=== PATIENT | female | born 1940 | race Caucasian/White ===

== ENCOUNTER 2016-04-28 16:04 | Inpatient (IN) | payer OTHER ==
[2016-04-28] MEDS ORDERED: NS 1,000 ML IV ONE (16:31)
--- NOTE | 2016-04-28 16:31 | EDPHY ---
H & P Stated Complaint: Deterioation of condistion over last 3-4 days;weak,lethargic HPI/ROS: HPI CHIEF COMPLAINT: Generalized weakness, dehydration, shortness of breath, increasing confusion HISTORY OF PRESENT ILLNESS: This patient very pleasant 75-year-old female significant past medical history for COPD, acute on chronic hypercarbic respiratory failure, AFib, pulmonary hypertension, presents to the emergency room with daughter and for increasing confusion, generalized weakness x1 week, dehydration, decreased appetite and worsening shortness of breath. Patient tells me she feels like a wet noodle she tells me she is weak all over. She feels more short of breath than normal. She has had a cough but nonproductive. She states she has had a decreased appetite not drinking. She denies significant pain anywhere she does have chronic back pain. Past Medical History: COPD, on 4-6 L nasal cannula, AFib, acute on chronic hypercapnic respiratory failure, pulmonary hypertension Social History: denies use of drugs alcohol tobacco products Family History: noncontributory ROS REVIEW OF SYSTEMS: A comprehensive 10 point review of systems is otherwise negative aside from elements mentioned in the history of present illness. Exam Constitutional appears nontoxic triage nursing summary reviewed, vital signs reviewed, awake/alert. Eyes normal conjunctivae and sclera, EOMI, PERRLA. HENT normal inspection, atraumatic, dry mucous membranes, no epistaxis, neck supple/ no meningismus, no raccoon eyes. Respiratory decreased breath sounds bilaterally, faint wheezing, no respiratory distress, no wheezing. Cardiovascular irregular, irregular rhythm , no murmur, no edema, distal pulses normal. Gastrointestinal soft, non-tender, no rebound, no guarding, normal bowel sounds, no distension, no pulsatile mass. Genitourinary no CVA tenderness. Musculoskeletal no midline vertebral tenderness, full range of motion, no calf swelling, no tenderness of extremities, no meningismus, good pulses, neurovascularly intact. Skin pink, warm, & dry, no rash, skin atraumatic. Neurologic awake, alert and oriented x 3, AAOx3, moves all 4 extremities equally, motor intact, sensory intact, CN II-XII intact, normal cerebellar, normal vision, normal speech. Psychiatric normal mood/affect. Heme/Lymph/Immune no lymphadenopathy. Differential Diagnosis: includes but is not limited to in a particular order dehydration, electrolyte abnormality, COPD exacerbation, pneumonia, sepsis, infection, failure to thrive, generalized weakness, urinary tract infection Medical Decision Making: This patient be placed on full instructional coordinator showed have an IV established will receive IV fluids as she is dehydrated clinically, will check blood work including electrolytes, troponin, she will need a chest x- ray to rule out pneumonia, EKG, and most likely this patient will need to be admitted for generalized weakness, failure to thrive, shortness of breath. Re-evaluation: EKG interpretation by me on record in [employer] system. Impression time of EKG 1641, this is AFib rate of 92 T-wave abnormality in aVL as well as V1 V2, V3 and V4. Otherwise unremarkable EKG. 180: re-examination at this time this patient is resting comfortably have ordered her IV Lasix, I have held her IV fluids as her chest x-ray does show pulmonary edema. She has obvious superimposed COPD. She is at her baseline oxygen requirement 4 L. She is in no acute distress. She will be admitted to the hospitalist service for pulmonary edema, shortness of breath, generalized weakness. Her urinalysis pending at this time it is noted her troponin is negative her EKG is AFib. Patient agrees for admission. I spoke with Dr. Carvalho he agrees to admit this patient to PCU. Source: Patient - Personal History Current Tetanus Diphtheria and Acellular Pertussis (TDAP): Unsure Tetanus Vaccine Date: UNSURE - Medical/Surgical History Hx Asthma: No Hx Chronic Respiratory Disease: Yes Hx Diabetes: No Hx Cardiac Disease: Yes Hx Renal Disease: No Hx Cirrhosis: No Hx Alcoholism: No Hx HIV/AIDS: No Hx Splenectomy or Spleen Trauma: No Other PMH: pmh- end stage emphysema, mvp, chf, etoh (sober 30 years). psh- hysterectomy - Social History Smoking Status: Former smoker Constitutional: Initial Vital Signs Temperature (C) 36.7 C 04/28/16 16:15 Heart Rate 81 04/28/16 16:15 Respiratory Rate 20 04/28/16 16:15 O2 Sat (%) 99 04/28/16 16:15 O2 Delivery Mode Nasal Cannula O2 (L/minute) 4 Allergies/Adverse Reactions: Penicillins Allergy (Unknown, Verified 04/28/16 16:26) erythromycin base Allergy (Verified 04/28/16 16:26) Macrolide Antibiotics Allergy (Verified 04/28/16 16:26) Sulfa (Sulfonamide Antibiotics) Allergy (Verified 04/28/16 16:26) Home Medications: Medication Instructions Recorded Atenolol [Tenormin 50 mg (RX)] 25 mg PO DAILY 03/24/12 Estrogens, Conjugated [Premarin] 0.45 mg PO DAILY 03/24/12 Tiotropium Inhaler [Spiriva 1 inh IH DAILY 03/24/12 Inhaler (RX)] methylPREDNISolone [Medrol 4mg 8 mg PO DAILY 10/21/12 (RX)] AZITHROMYCIN [Z-PACK] 250 mg PO DAILY #4 packet 11/27/15 Albuterol Sulfate [Proair Hfa] 1 - 2 puffs IN Q4H PRN 04/28/16 Fluticasone Propionate [Flovent 1 inh PO BID 04/28/16 Hfa] LORAZEPAM [LORAZEPAM] 0.5 mg PO TID PRN 04/28/16 Levalbuterol 0.63 mg [Xopenex 0.63 mg IH DAILY 04/28/16 0.63MG Neb (*)] Methylprednisolone [Medrol] 4 mg PO HS 04/28/16 Medical Decision Making - Data Points Laboratory Results: Laboratory Results 04/28/16 16:51 04/28/16 16:51 Medications Given: Discontinued Medications Albuterol/Ipratropium (Duoneb) 3 ml IH EDNOW ONE Stop: 04/28/16 16:39 Last Admin: 04/28/16 16:58 Dose: 3 ml Furosemide (Lasix Injection) 40 mg IVP EDNOW ONE Stop: 04/28/16 18:02 Last Admin: 04/28/16 18:13 Dose: 40 mg Sodium Chloride (Ns) 1,000 mls @ 0 mls/hr IV ONCE ONE PRN Reason: As Directed Stop: 04/28/16 16:32 Last Admin: 04/28/16 17:00 Dose: 400 mls Levalbuterol (Xopenex 0.63mg Neb) 0.63 mg IH DAILY DENNY Stop: 10/26/16 09:59 Last Admin: 04/29/16 09:51 Dose: Not Given Lorazepam (Ativan Injection) 0.5 mg IVP EDNOW ONE Stop: 04/28/16 20:01 Last Admin: 04/28/16 20:05 Dose: 0.5 mg Lorazepam (Ativan) 0.5 mg PO TID PRN PRN Reason: Anxiety Stop: 10/25/16 22:04 Last Admin: 04/29/16 13:12 Dose: 0.5 mg Departure - Departure Disposition: [facility] Acute Clinical Impression: Generalized weakness, Shortness of breath Pulmonary edema Qualifiers: Chronicity: acute Qualifier Code: (J81.0) Acute pulmonary edema Condition: Fair
[2016-04-28] MEDS ORDERED: IPRATROPIUM/ALBUTEROL 3 ML DEYVIAL IH ONE (16:38)
--- NOTE | 2016-04-28 16:45 | CPEKG ---
Heart Rate: 92 RR Interval: 652 QRSD Interval: 92 QT Interval: 332 QTC Interval: 411 QRS [place]: -57 T Wave [place]: 125 EKG Severity - ABNORMAL ECG - EKG Impression: ATRIAL FIBRILLATION, V-RATE 84-117 EKG Impression: LEFT ANTERIOR FASCICULAR BLOCK EKG Impression: NONSPECIFIC T ABNORMALITIES, ANT-LAT LEADS Electronically Signed By: Pablo Floyd 30-Apr-2016 05:38:57
[2016-04-28 17:12] LABS: % IMMATURE GRANULYOCYTES 0.7 % (0.0-1.1); ABSOLUTE IMMATURE GRANULOCYTES 0.06 10^3/uL (0.00-0.10); ADD DIFF? NO; ADD MORPH? NO; ADD SCAN? NO; ATYPICAL LYMPHOCYTE FLAG 0 (0-99); FRAGMENT RBC FLAG 0 (0-99); HEMATOCRIT 42.1 % (38.0-47.0); HEMOGLOBIN 12.5 g/dL (12.6-16.3); LEFT SHIFT FLG 0 (0-99); LIPEMIA HEMOLYSIS FLAG 70 (0-99); MEAN CELL HEMOGLOBIN 30.2 pg (27.9-34.1); MEAN CELL HEMOGLOBIN CONCENTR. 29.7 g/dL (32.4-36.7); MEAN CELL VOLUME 101.7 fL (81.5-99.8); MEAN PLATELET VOLUME 9.6 fL (8.7-11.7); PLATELET CLUMPS FLAG 0 (0-99); PLATELET COUNT 195 10^3/uL (150-400); RED BLOOD CELL COUNT 4.14 10^6/uL (4.18-5.33); RED CELL DISTRIBUTION WIDTH 12.9 % (11.5-15.2)
[2016-04-28 17:27] LABS: ALANINE AMINOTRANSFERASE 56 IU/L (9-52); ALBUMIN 3.6 g/dL (3.5-5.0); ALKALINE PHOSPHATASE 64 IU/L (38-126); ASPARTATE AMINOTRANSFERASE 42 IU/L (14-46); BILIRUBIN,TOTAL 0.7 mg/dL (0.1-1.4); BILIRUBIN-CONJUGATED 0.5 mg/dL (0.0-0.5); BILIRUBIN-UNCONJUGATED 0.2 mg/dL (0.0-1.1); CALCIUM 8.7 mg/dL (8.5-10.4); CHLORIDE 90 mEq/L (97-110); CREATININE 0.5 mg/dL (0.6-1.0); GLOMERULAR FILTRATION RATE > 60; GLUCOSE 143 mg/dL (70-100); MAGNESIUM 1.9 mg/dL (1.6-2.3); POTASSIUM 4.7 mEq/L (3.5-5.2); SODIUM 138 mEq/L (134-144); TOTAL PROTEIN 6.3 g/dL (6.3-8.2)
[2016-04-28 17:38] LABS: CREATINE KINASE-MB FRACTION 3.09 ng/mL (0-3.19); TROPONIN I 0.013 ng/mL (0-0.034)
[2016-04-28 17:40] LABS: APTT 23.2 SEC (23.0-38.0); INR 0.94 (0.83-1.16); PROTIME(PATIENT) 12.5 SEC (12.0-15.0)
[2016-04-28 17:41] LABS: ANION GAP 8 mEq/L (8-16)
--- NOTE | 2016-04-28 17:51 | DX ---
AP Upright Portable Chest Clinical Indications: Chest pain and dyspnea in a 75-year-old female; comparison CT chest December 17, 2015 and PA and lateral chest November 27, 2015. Findings: No focal pulmonary consolidation is identified.. There is hyperexpansion with flattening of the hemidiaphragms noted. The heart is borderline enlarged allowing for portable technique. Pulmonar y vascularity is normal. No pleural effusion is seen. Pleural surfaces and bony thorax are negative f or acute abnormality. Impression: 1. Hyperexpansion consistent with previously demonstrated emphysema with no superimposed pulmonary co nsolidation identified. 2. Borderline cardiac enlargement could reflect low-grade congestive heart failure.
[2016-04-28 17:58] LABS: CARBON DIOXIDE 46 mEq/l (22-31)
[2016-04-28 17:58] LABS: P/F RATIO 99 RATIO
[2016-04-28] MEDS ORDERED: FUROSEMIDE 40 MG/4 ML VIAL IVP ONE (18:01)
[2016-04-28] MEDS ORDERED: LORazepam 2 MG/ML INJ IVP ONE (20:00)
[2016-04-28 20:11] LABS: COLOR PALE YELLOW; LEUKOCYTE ESTERASE,URINE NEGATIVE (NEGATIVE); NITRITE,URINE NEGATIVE (NEGATIVE)
[2016-04-28] MEDS ORDERED: LEVALBUTEROL 0.63 MG/3 ML DEYVIAL IH PRN (22:08)
[2016-04-28] MEDS ORDERED: ONDANSETRON 4 MG/2 ML VIAL IVP PRN (22:10)
[2016-04-28] MEDS ORDERED: ACETAMINOPHEN 325 MG TAB PO PRN (22:10)
[2016-04-28] MEDS ORDERED: ONDANSETRON DISINTEGRATING 4 MG TAB PO PRN (22:10)
--- NOTE | 2016-04-28 22:23 | PDGENHP ---
History and Physical - Chief Complaint Acute lethargy - History of Present Illness Primary care provider: Dr. Caicedo Primary stereoptician: Dr. Cuba Primary internal medicine nurse: Dr. Munoz HPI: 75-year-old female presenting with acute lethargy characterized as feeling like a noodle with associated encephalopathy, anorexia, shortness of breath, nonproductive cough, generalized weakness. Onset of symptoms approximately 1 week ago and duration has been persistent and worsening thereafter. The patient was seen by Dr. Cuba on the day prior to presentation and was initiated on azithromycin 250 mg daily. The patient has continued to utilize her Xopenex at home and it somewhat alleviates the symptoms of shortness of breath. She also utilizes as needed Ativan and this seems to alleviate any anxiety she has surrounding her breathing. The patient's family reports that she has not had anything substantial to eat or drink in approximately 4 days. She has not otherwise had any medication adjustments. She has not been expressing any infectious symptoms. History Information - Allergies/Home Medication List Allergies/Adverse Reactions: Penicillins Allergy (Unknown, Verified 04/28/16 16:26) erythromycin base Allergy (Verified 04/28/16 16:26) Macrolide Antibiotics Allergy (Verified 04/28/16 16:26) Sulfa (Sulfonamide Antibiotics) Allergy (Verified 04/28/16 16:26) Home Medications: Atenolol [Tenormin 50 mg (RX)] 25 mg PO DAILY 03/24/12 [Last Taken 04/28/16] Estrogens, Conjugated [Premarin] 0.45 mg PO DAILY 03/24/12 [Last Taken Unknown] Tiotropium Inhaler [Spiriva Inhaler (RX)] 1 inh IH DAILY 03/24/12 [Last Taken Unknown] methylPREDNISolone [Medrol 4mg (RX)] 8 mg PO DAILY 10/21/12 [Last Taken 04/28/16 ] Albuterol Sulfate [Proair Hfa] 1 - 2 puffs IN Q4H PRN 04/28/16 [Last Taken Unknown] Fluticasone Propionate [Flovent Hfa] 1 inh PO BID 04/28/16 [Last Taken Unknown] LORAZEPAM [LORAZEPAM] 0.5 mg PO TID PRN 04/28/16 [Last Taken Unknown] Levalbuterol 0.63 mg [Xopenex 0.63MG Neb (*)] 0.63 mg IH DAILY 04/28/16 [Last Taken Unknown] Methylprednisolone [Medrol] 4 mg PO HS 04/28/16 [Last Taken Unknown] I have personally reviewed and updated: family history, medical history, social history, surgical history - Past Medical History atrial fibrillation (Permanent), CHF (Diastolic), COPD (With chronic hypoxic and hypercapnic respiratory failure), hypertension Additional medical history: Mitral valve prolapse. Pulmonary hypertension. Diverticulosis - Surgical History Reports: hysterectomy - Family History Additional family history: No recent sick family contacts - Social History Smoking Status: Former smoker Alcohol Use: None Drug Use: None Additional social history: Dependent in her ADLs Review of Systems ROS: 10pt was reviewed & negative except for what was stated in HPI & below Constitutional: Reports: weakness, other (Anorexia) Respiratory: Reports: cough, shortness of breath Physical Exam Temp Pulse Resp BP Pulse Ox 36.6 C 112 H 18 95/68 L 100 04/28/16 20:40 04/28/16 20:40 04/28/16 20:40 04/28/16 20:40 04/28/16 20:40 O2 (L/minute) 4 Constitutional: no apparent distress, not in pain, chronically ill appearing, cachectic, No uncomfortable Eyes: PERRL, anicteric sclera, EOMI Ears, Nose, Mouth, Throat: no oral mucosal ulcers, other (Tacky mucous membranes ) Cardiovascular: irregularly irregular, tachycardia, other (Distant heart sounds) , No systolic murmur, No edema Respiratory: reduced air movement (Reduced expiratory air movement throughout), No expiratory wheeze, No inspiratory crackles, No bronchial breath sounds, No respiratory distress Gastrointestinal: normoactive bowel sounds, soft, non-tender abdomen, no palpable masses Skin: other (Scattered ecchymoses, no evidence of erythematous lesions) Neurologic: other (Alert awake oriented times 0, arousable to painful stimuli, able to move once she has awakened) Psychiatric: not anxious, encephalopathic, No agitated Lab Data & Imaging Review 04/28/16 16:51 04/28/16 16:51 WBC 8.01 10^3/uL (3.80-9.50) 04/28/16 16:51 RBC 4.14 10^6/uL (4.18-5.33) L 04/28/16 16:51 Hgb 12.5 g/dL (12.6-16.3) L 04/28/16 16:51 Hct 42.1 % (38.0-47.0) 04/28/16 16:51 MCV 101.7 fL (81.5-99.8) H 04/28/16 16:51 MCH 30.2 pg (27.9-34.1) 04/28/16 16:51 MCHC 29.7 g/dL (32.4-36.7) L 04/28/16 16:51 RDW 12.9 % (11.5-15.2) 04/28/16 16:51 Plt Count 195 10^3/uL (150-400) 04/28/16 16:51 MPV 9.6 fL (8.7-11.7) 04/28/16 16:51 Neut % (Auto) 89.2 % (39.3-74.2) H 04/28/16 16:51 Lymph % (Auto) 6.2 % (15.0-45.0) L 04/28/16 16:51 [place] % (Auto) 3.6 % (4.5-13.0) L 04/28/16 16:51 Eos % (Auto) 0.1 % (0.6-7.6) L 04/28/16 16:51 Baso % (Auto) 0.2 % (0.3-1.7) L 04/28/16 16:51 Nucleat RBC Rel Count 0.0 % (0.0-0.2) 04/28/16 16:51 Absolute Neuts (auto) 7.13 10^3/uL (1.70-6.50) H 04/28/16 16:51 Absolute Lymphs (auto) 0.50 10^3/uL (1.00-3.00) L 04/28/16 16:51 Absolute Monos (auto) 0.29 10^3/uL (0.30-0.80) L 04/28/16 16:51 Absolute Eos (auto) 0.01 10^3/uL (0.03-0.40) L 04/28/16 16:51 Absolute Basos (auto) 0.02 10^3/uL (0.02-0.10) 04/28/16 16:51 Absolute Nucleated RBC 0.00 10^3/uL (0-0.01) 04/28/16 16:51 Immature Gran % 0.7 % (0.0-1.1) 04/28/16 16:51 Immature Gran # 0.06 10^3/uL (0.00-0.10) 04/28/16 16:51 PT 12.5 SEC (12.0-15.0) 04/28/16 16:51 INR 0.94 (0.83-1.16) 04/28/16 16:51 APTT 23.2 SEC (23.0-38.0) 04/28/16 16:51 Puncture Site RIGHT BRACHIAL 04/28/16 17:45 Patient Temperature 37.0 DEGREES 04/28/16 17:45 pCO2 TNP 04/28/16 17:45 pO2 TNP 04/28/16 17:45 Total CO2 TNP 04/28/16 17:45 ABG pH REJ 04/28/16 17:45 ABG PO2/FiO2 Ratio 99 RATIO 04/28/16 17:45 ABG O2 Saturation TNP 04/28/16 17:45 ABG Base Excess TNP 04/28/16 17:45 VBG Lactic Acid 0.7 mmol/L (0.7-2.1) 04/28/16 18:00 Total O2 Concentration 4.0 LITERS 04/28/16 17:45 Sodium 138 mEq/L (134-144) 04/28/16 16:51 Potassium 4.7 mEq/L (3.5-5.2) 04/28/16 16:51 Chloride 90 mEq/L (97-110) L 04/28/16 16:51 Carbon Dioxide 46 mEq/l (22-31) H* 04/28/16 16:51 Bicarbonate TNP 04/28/16 17:45 Anion Gap 8 mEq/L (8-16) 04/28/16 16:51 BUN 19 mg/dL (7-23) 04/28/16 16:51 Creatinine 0.5 mg/dL (0.6-1.0) L 04/28/16 16:51 Estimated GFR > 60 04/28/16 16:51 Glucose 143 mg/dL (70-100) H 04/28/16 16:51 Calcium 8.7 mg/dL (8.5-10.4) 04/28/16 16:51 Magnesium 1.9 mg/dL (1.6-2.3) 04/28/16 16:51 Total Bilirubin 0.7 mg/dL (0.1-1.4) 04/28/16 16:51 Conjugated Bilirubin 0.5 mg/dL (0.0-0.5) 04/28/16 16:51 Unconjugated Bilirubin 0.2 mg/dL (0.0-1.1) 04/28/16 16:51 AST 42 IU/L (14-46) 04/28/16 16:51 ALT 56 IU/L (9-52) H 04/28/16 16:51 Alkaline Phosphatase 64 IU/L (38-126) 04/28/16 16:51 Creatine Kinase 26 IU/L (0-156) 04/28/16 16:51 CK-MB (CK-2) Fraction 3.09 ng/mL (0-3.19) 04/28/16 16:51 Troponin I 0.013 ng/mL (0-0.034) 04/28/16 16:51 NT-Pro-B Natriuret Pep 2590 pg/mL (0-125) H 04/28/16 16:51 Total Protein 6.3 g/dL (6.3-8.2) 04/28/16 16:51 Albumin 3.6 g/dL (3.5-5.0) 04/28/16 16:51 Lipase 28.0 IU/L (23-300) 04/28/16 16:51 Urine Color PALE YELLOW 04/28/16 19:45 Urine Appearance CLEAR 04/28/16 19:45 Urine pH 5.0 (5.0-7.5) 04/28/16 19:45 Ur Specific [place] 1.006 (1.002-1.030) 04/28/16 19:45 Urine Protein NEGATIVE (NEGATIVE) 04/28/16 19:45 Urine Ketones NEGATIVE (NEGATIVE) 04/28/16 19:45 Urine Blood NEGATIVE (NEGATIVE) 04/28/16 19:45 Urine Nitrate NEGATIVE (NEGATIVE) 04/28/16 19:45 Urine Bilirubin NEGATIVE (NEGATIVE) 04/28/16 19:45 Urine Urobilinogen NEGATIVE EU (0.2-1.0) 04/28/16 19:45 Ur Leukocyte Esterase NEGATIVE (NEGATIVE) 04/28/16 19:45 Ur Culture Indicated? NOT INDICATED (NI) 04/28/16 19:45 Urine Glucose NEGATIVE (NEGATIVE) 04/28/16 19:45 Visualized and Interpreted Chest x-ray results: Yes Chest X-Ray results: other (Faint interstitial markings, no focal airspace disease) Visualized and Interpreted EKG results: Yes EKG Interpretation: Positive for: other (AFib with left anterior fascicular block) Assessment & Plan Assessment: 75-year-old female presents with acute lethargy, acute encephalopathy, acute COPD exacerbation Plan: 1. Acute lethargy. New problem this provider, further workup indicated. Most likely etiology is acute on chronic hypercapnic respiratory failure given her progressively rising serum bicarbonate level as well as non adherence to at bedtime CPAP over the past several nights -get ABG to evaluate pH and pCO2 -send flu PCR -get PT/OT/case management -give trial of BiPAP this evening and gauge response 2. Acute COPD exacerbation. Most likely cause of patient's symptoms, evidenced by poor expiratory air movement diffusely throughout, history of severe underlying COPD -reviewed outside records including 04/02/2012 discharge summary by Kaylin E[place], characterizing patient's presentation for acute hypercapnic and hypoxic respiratory failure secondary to severe COPD -placed on scheduled Xopenex and Atrovent -continue home dosage of methylprednisolone -continue home dosage of azithromycin -discussed with patient's family, her goals of care are more in line with palliative measures but the patient has not had a formal outpatient palliative consultation and does not know how to go about arranging a more comfort based home Plan -will get palliative care consultation in a.m. -continue as needed Ativan for comfort 3. Chronic hypoxic respiratory failure. Secondary to above, continue supplemental oxygen 4. Chronic diastolic congestive heart failure. Unclear whether patient is experiencing acute exacerbation, her elevated BNP at 2600 (baseline is around 500) may be secondary to worsening pulmonary disease -continue beta-vijay -continue to monitor daily weights and strict I&Os -hold on IV fluids overnight given possibility of volume overload but the patient's oral intake remains poor tomorrow then would recommend placing her on IV fluids at that time 5. Permanent atrial fibrillation. Mild RVR in the setting of above, continue atenolol and continue to monitor on telemetry -patient not currently on systemic anticoagulation given her limited life expectancy as well as significant bruising in the setting of chronic steroids 6. Hypertension. Chronic, continue to monitor 7. Severe protein calorie malnutrition. Evidenced by proximal muscle wasting, poor oral intake, cachexia with severe chronic illness -get dietary consult -dietary supplements Diet. Regular diet with supplements, dietary consultation appreciated Code. Do not resuscitate per family and advanced directive which is present Prophylaxis. High risk patient, Lovenox 40 Disposition. Anticipated discharge is uncertain this time, anticipated length stay is greater than 48 hours warranting inpatient admission status for acute COPD exacerbation requiring further workup and treatment as outlined above. Patient also requires end of life counseling and palliative consultation.
[2016-04-28] MEDS ORDERED: NS 1,000 ML IV SCH (23:45)
[2016-04-28] MEDS: FLUTICASONE HFA 110 MCG MDI IH SCH (23:51)
[2016-04-29] MEDS ORDERED: IPRATROPIUM/ALBUTEROL 3 ML DEYVIAL IH SCH
[2016-04-29] MEDS: methylPREDNISolone 4 MG TAB PO SCH ×3 (00:15→20:16)
[2016-04-29] MEDS: IPRATROPIUM BROMIDE 0.5 MG/2.5 ML DEYVIAL IH SCH ×5 (00:42→22:03)
[2016-04-29] MEDS: LEVALBUTEROL 0.63 MG/3 ML DEYVIAL IH SCH ×7 (00:43→22:03)
[2016-04-29] MEDS: LORazepam 0.5 MG TAB PO PRN ×5 (00:54→20:15)
[2016-04-29 08:17] LABS: % IMMATURE GRANULYOCYTES 0.4 % (0.0-1.1); ABSOLUTE IMMATURE GRANULOCYTES 0.03 10^3/uL (0.00-0.10); ADD DIFF? NO; ADD MORPH? NO; ADD SCAN? NO; ATYPICAL LYMPHOCYTE FLAG 0 (0-99); FRAGMENT RBC FLAG 0 (0-99); HEMOGLOBIN 11.6 g/dL (12.6-16.3); LEFT SHIFT FLG 0 (0-99); LIPEMIA HEMOLYSIS FLAG 70 (0-99); MEAN CELL HEMOGLOBIN 30.4 pg (27.9-34.1); MEAN CELL HEMOGLOBIN CONCENTR. 29.7 g/dL (32.4-36.7); MEAN CELL VOLUME 102.1 fL (81.5-99.8); MEAN PLATELET VOLUME 9.5 fL (8.7-11.7); PLATELET CLUMPS FLAG 0 (0-99); PLATELET COUNT 174 10^3/uL (150-400); RED BLOOD CELL COUNT 3.82 10^6/uL (4.18-5.33)
[2016-04-29] MEDS: ATENOLOL 25 MG TAB PO SCH (08:24)
[2016-04-29 08:41] LABS: CALCIUM 7.9 mg/dL (8.5-10.4); CHLORIDE 88 mEq/L (97-110); CREATININE 0.5 mg/dL (0.6-1.0); GLOMERULAR FILTRATION RATE > 60; GLUCOSE 113 mg/dL (70-100); POTASSIUM 4.2 mEq/L (3.5-5.2); SODIUM 140 mEq/L (134-144)
[2016-04-29 08:51] LABS: ANION GAP 1 mEq/L (8-16)
[2016-04-29 08:52] LABS: CARBON DIOXIDE 51 mEq/l (22-31)
[2016-04-29] MEDS ORDERED: IPRATROPIUM/ALBUTEROL 3 ML DEYVIAL ONE (09:16)
[2016-04-29] MEDS: AZITHROMYCIN 250 MG TAB PO SCH (09:26)
[2016-04-29] MEDS: FLUTICASONE HFA 110 MCG MDI IH SCH ×2 (09:29→22:03)
[2016-04-29] MEDS: ENOXAPARIN 40 MG/0.4 ML SYR SC SCH (09:29)
[2016-04-29] MEDS: TIOTROPIUM INHALER 18 MCG/DOSE 5 DOSE/MDI IH SCH ×2 (09:54→10:19)
[2016-04-29] MEDS: Estrogens, Conjugated [Premarin] 0.45 MG PO SCH (12:29)
--- NOTE | 2016-04-29 13:59 | HOSPPROG ---
Hospitalist Progress Note Assessment/Plan: # Acute lethargy- suspect secondary to acute on chronic hypercapnic respiratory failure given her - rising serum bicarbonate - patient refusing workup -get PT/OT/case management -give trial of BiPAP this evening and gauge response # Acute COPD exacerbation- evidenced by poor expiratory air movement diffusely throughout, history of severe underlying COPD oxygen saturation 89-90% on 2 L - CXR ( personally reviewed and interpreted ) hyperexpansion with no infiltrates -cont Xopenex and Atrovent -continue home dosage of methylprednisolone -continue home dosage of azithromycin -palliative care consult today for goals of care # Chronic hypoxic respiratory failure. Secondary to above, continue supplemental oxygen # Chronic diastolic congestive heart failure- her elevated BNP at 2600 ( baseline is around 500) may be secondary to worsening pulmonary disease -continue beta-vijay -continue to monitor daily weights and strict I&Os # Permanent atrial fibrillation-Mild RVR in the setting of above - continue atenolol - continue to monitor on telemetry -patient not currently on systemic anticoagulation given her limited life expectancy as well as significant bruising in the setting of chronic steroids # Hypertension. Chronic, continue to monitor # Severe protein calorie malnutrition- Evidenced by proximal muscle wasting- BMI 17 - dietary consult -dietary supplements #Diet- Regular diet with supplements # Code. Do not resuscitate per family and advanced directive which is present # Prophylaxis. High risk patient, Lovenox 40 # Disposition- >2MN he has requires aggressive pulmonary toilet and Case Management palliative Care consultation for disposition I have discussed the case with palliative care patient is most comfortable moving forward comfort measures Subjective: deeply depressed Objective: Vital Signs Temp Pulse Resp BP Pulse Ox 36.8 C 114 H 16 98/60 L 95 04/29/16 08:00 04/29/16 09:52 04/29/16 09:52 04/29/16 08:00 04/29/16 09:52 Laboratory Results 04/29/16 08:03 04/29/16 08:03 04/28/16 04/29/16 04/30/16 05:59 05:59 05:59 Intake Total 1300 Balance 1300 PT 12.5 SEC (12.0-15.0) 04/28/16 16:51 INR 0.94 (0.83-1.16) 04/28/16 16:51 - Physical Exam Constitutional: chronically ill appearing, cachectic Eyes: anicteric sclera Ears, Nose, Mouth, Throat: moist mucous membranes Cardiovascular: irregularly irregular Respiratory: no respiratory distress, expiratory wheeze Gastrointestinal: normoactive bowel sounds, soft, non-tender abdomen Genitourinary: no bladder fullness Skin: warm, normal color Musculoskeletal: No asymmetric calves Neurologic: AAOx3 Psychiatric: interacting appropriately, not anxious, depressed Lymph, Heme, Immunologic: no cervical LAD ICD10 Worksheet Patient Problems: Problems Problem Status Diagnosed Generalized weakness Acute Pulmonary edema Acute Shortness of breath Acute Hypoxia Active Respiratory failure Active hypercapnea Active
--- NOTE | 2016-04-29 16:55 | PDPCPN ---
Palliative Care Progress Note Assessment/Plan: Referring provider: Dr Carpio Reason for consult: Complex medical decision making Symptom control HPI: Nargis Juarez is a 75 yo female with PMH COPD, CHF, HTN, and pul HTN admitted to the hospital for AMS, decreased appetite, weakness, and SOB. Found to have acute COPD exacerbation started on IV fluids and antibiotics. At home on ativan for anxiety. Clinically improved overnight, still with SOB but awake and able to answer questions. Palliative care consulted for complex medical decision making. Spoke with Nargis this afternoon who was having increasing SOB and anxiety. She gave permission to speak with her family outside of the room. Spoke with and 2 daughters outside of the room about goals of care. Satya read Nargis's living will out loud which states if she has a terminal illness that her life not be prolonged and she be managed with comfort medications only. Satya feels the oxygen is keeping her alive and therefore not in line with her wishes. The family spoke about Nargis suffering in bed with SOB and how she has told them over the past few days "i'm done". They feel not prolonging her suffering is what she would want at this point. They have experience with hospice care and Nargis per family has been afraid of the word. We discussed adding medications for comfort and would reconvene tomorrow to continue discussions about moving only to comfort care. Assessment: Physical: - Pain: compression fx in back - morphine 1-2mg IV Q1hr PRN - Dyspnea: - opiates as above - oxygen as needed - nebs and steroids as maverick - fan can also be helpful for subjective dyspnea - constipation - at risk with opiate use - senna/colace BID PRN Emotional/psychological: Anxiety: ativan 0.5mg TID PRN Advanced Care Planning: Is patient decisional?: Yes with help Code Status: DNR POA: Satya is MDPOA Plan: will meet with family and patient again tomorrow at 11 am to continue discussions. Subjective: I'm too hot Objective: Social History: to Satya. 3 daughters all involved. Last one coming into town tomorrow night Medication list reviewed ROS: General: fatigue, weakness ENT: dry mouth Resp: dyspnea, cough GI: poor appetite : negative MS: back pain Skin: negative Neuro: negative Psych: anxiety Functional assessment: PPS:40% Functional status: needs assistance with ADLs Vital Signs Temp Pulse Resp BP Pulse Ox 36.8 C 115 H 16 98/60 L 91 L 04/29/16 08:00 04/29/16 16:05 04/29/16 16:05 04/29/16 08:00 04/29/16 16:05 Laboratory Results 04/29/16 08:03 04/29/16 08:03 04/28/16 04/29/16 04/30/16 05:59 05:59 05:59 Intake Total 1300 Balance 1300 PT 12.5 SEC (12.0-15.0) 04/28/16 16:51 INR 0.94 (0.83-1.16) 04/28/16 16:51 Physical Exam - Physical Exam General Appearance: mild distress, other (awakens to voice) Respiratory: respiratory distress (mild), decreased breath sounds, No accessory muscle use Skin: normal color, warm/dry Extremities: No pedal edema Neuro/Psych: other (some confusion but able to answer questions) ICD10 Worksheet Patient Problems: Problems Problem Status Diagnosed Chronic Disease Mgmt/Transitional Care Acute Generalized weakness Acute Palliative care encounter Acute Pulmonary edema Acute Shortness of breath Acute Hypoxia Active Respiratory failure Active hypercapnea Active - ICD10 Problem Qualifiers (1) Palliative care encounter
[2016-04-29] MEDS ORDERED: LORazepam 2 MG/ML INJ IVP PRN (18:16)
[2016-04-29 23:47] VITALS: TEMP 97.9
[2016-04-30] MEDS: LORazepam 0.5 MG TAB PO PRN ×5 (02:00→21:29)
[2016-04-30] MEDS: LEVALBUTEROL 0.63 MG/3 ML DEYVIAL IH SCH ×4 (05:58→22:10)
[2016-04-30] MEDS: IPRATROPIUM BROMIDE 0.5 MG/2.5 ML DEYVIAL IH SCH ×4 (05:59→22:10)
[2016-04-30] MEDS ORDERED: morphINE 10 MG/0.5 ML UDSYR PO PRN (09:29)
[2016-04-30] MEDS ORDERED: guaiFENesin 200 MG/10 ML UDCUP PO PRN (09:30)
[2016-04-30] MEDS: ATENOLOL 25 MG TAB PO SCH (09:37)
[2016-04-30] MEDS: AZITHROMYCIN 250 MG TAB PO SCH (09:43)
[2016-04-30] MEDS: methylPREDNISolone 4 MG TAB PO SCH ×2 (09:44→23:34)
[2016-04-30 09:46] VITALS: BP 105/50
[2016-04-30] MEDS: ENOXAPARIN 40 MG/0.4 ML SYR SC SCH (09:58)
[2016-04-30] MEDS: Estrogens, Conjugated [Premarin] 0.45 MG PO SCH (09:59)
[2016-04-30] MEDS: FLUTICASONE HFA 110 MCG MDI IH SCH ×2 (10:01→20:16)
[2016-04-30] MEDS: TIOTROPIUM INHALER 18 MCG/DOSE 5 DOSE/MDI IH SCH (10:02)
[2016-04-30] MEDS: morphINE 10 MG/0.5 ML UDSYR PO PRN ×3 (11:45→23:39)
--- NOTE | 2016-04-30 12:40 | HOSPPROG ---
Hospitalist Progress Note Assessment/Plan: # Acute lethargy- suspect secondary to acute on chronic hypercapnic respiratory failure given her - rising serum bicarbonate - patient refusing workup -get PT/OT/case management -initiating comfort care measures # Acute COPD exacerbation- evidenced by poor expiratory air movement diffusely throughout, history of severe underlying COPD oxygen saturation 93% on 2 L - CXR(personally reviewed and interpreted) hyperexpansion with no infiltrates -cont Xopenex and Atrovent -continue home dosage of methylprednisolone -continue home dosage of azithromycin - initiating roxanol and ativan for sx control # Chronic hypoxic respiratory failure. Secondary to above, continue supplemental oxygen # Chronic diastolic congestive heart failure- her elevated BNP at 2600 ( baseline is around 500) may be secondary to worsening pulmonary disease -continue beta-vijay -continue to monitor daily weights and strict I&Os # Permanent atrial fibrillation-Mild RVR in the setting of above - continue atenolol - continue to monitor on telemetry - patient not currently on systemic anticoagulation given her limited life expectancy as well as significant bruising in the setting of chronic steroids # Hypertension. Chronic, continue to monitor # Severe protein calorie malnutrition- Evidenced by proximal muscle wasting- BMI 17 - dietary consult -dietary supplements #Diet- Regular diet with supplements # Code. Do not resuscitate per family and advanced directive which is present # Prophylaxis. High risk patient, Lovenox 40 # Disposition- >2MN patient agreeable for hospice consultation and [facility] hospice dc in [place] I have discussed the case with palliative care we will increase Roxanol dosing and consult hospice today Subjective: very short of breath Objective: Vital Signs Temp Pulse Resp BP Pulse Ox 36.6 C 94 20 105/50 L 93 04/29/16 23:46 04/30/16 10:00 04/30/16 10:00 04/30/16 09:37 04/30/16 10:00 Laboratory Results 04/29/16 08:03 04/29/16 08:03 04/29/16 04/30/16 05/01/16 05:59 05:59 05:59 Intake Total 1300 400 Output Total 600 Balance 1300 -200 PT 12.5 SEC (12.0-15.0) 04/28/16 16:51 INR 0.94 (0.83-1.16) 04/28/16 16:51 - Physical Exam Constitutional: cachectic Eyes: PERRL Ears, Nose, Mouth, Throat: dry mucous membranes Cardiovascular: regular rate and rhythym Respiratory: respiratory distress, No expiratory wheeze Gastrointestinal: normoactive bowel sounds Genitourinary: no bladder fullness Skin: warm, normal color Musculoskeletal: No asymmetric calves Neurologic: AAOx3 Psychiatric: anxious, depressed Lymph, Heme, Immunologic: no cervical LAD ICD10 Worksheet Patient Problems: Problems Problem Status Diagnosed Chronic Disease Mgmt/Transitional Care Acute Generalized weakness Acute Palliative care encounter Acute Pulmonary edema Acute Shortness of breath Acute Hypoxia Active Respiratory failure Active hypercapnea Active
--- NOTE | 2016-04-30 15:23 | PDPCPN ---
Palliative Care Progress Note Assessment/Plan: HPI: Nargis Juarez is a 75 yo female with PMH COPD, CHF, HTN, and pul HTN admitted to the hospital for AMS, decreased appetite, weakness, and SOB. Found to have acute COPD exacerbation started on IV fluids and antibiotics. At home on ativan for anxiety. Clinically improved overnight, still with SOB but awake and able to answer questions. Palliative care consulted for complex medical decision making. Met with Satya daughters Xin and Karuna, and DIL outside of the room. Reviewed the plan to focus on comfort care only, increased morphine and plan for home hospice. Family aware prognosis is likely days to weeks. Discussed in detail what hospice at home might look like and needs they will have. Also spoke with Nargis without family present who would like to be at home and is ok with comfort care only. She feels her breathing is still bad and often SOB but morphine helping with symptoms. Assessment: Physical: - Pain: compression fx in back - morphine 5-10mg PO Q2hr PRN - might consider starting fentanyl 12 mch/hr patch tomorrow if continues to use >30mg of morphine in 24 hours - Dyspnea: - opiates as above - oxygen as needed - nebs and steroids as maverick - fan can also be helpful for subjective dyspnea - constipation - at risk with opiate use - senna/colace BID PRN Emotional/psychological: Anxiety: ativan 0.5mg TID PRN Advanced Care Planning: Is patient decisional?: Yes with help Code Status: DNR/DNI POA: Satya is MDPOA Plan: Planning for hospice care at home. Family prefers pt stays here for awhile but they are aware she is medically ready to be discharged. Family has [facility]. Comfort measures only. Please use word "Comfort or palliative" to patient instead of hospice. Subjective: I can't breathe Objective: Vital Signs Temp Pulse Resp BP Pulse Ox 36.6 C 94 20 105/50 L 93 04/29/16 23:46 04/30/16 10:00 04/30/16 10:00 04/30/16 09:37 04/30/16 10:00 Laboratory Results 04/29/16 08:03 04/29/16 08:03 04/29/16 04/30/16 05/01/16 05:59 05:59 05:59 Intake Total 1300 400 Output Total 600 Balance 1300 -200 PT 12.5 SEC (12.0-15.0) 04/28/16 16:51 INR 0.94 (0.83-1.16) 04/28/16 16:51 Physical Exam - Physical Exam General Appearance: alert, mild distress Respiratory: respiratory distress, decreased breath sounds, No accessory muscle use Skin: normal color, warm/dry Extremities: pedal edema (trace) Neuro/Psych: alert, oriented x 3 ICD10 Worksheet Patient Problems: Problems Problem Status Diagnosed Chronic Disease Mgmt/Transitional Care Acute Generalized weakness Acute Palliative care encounter Acute Pulmonary edema Acute Shortness of breath Acute Hypoxia Active Respiratory failure Active hypercapnea Active - ICD10 Problem Qualifiers (1) Palliative care encounter
[2016-04-30 16:34] VITALS: RESP 30
[2016-05-01] MEDS: IPRATROPIUM BROMIDE 0.5 MG/2.5 ML DEYVIAL IH SCH ×4 (03:02→23:57)
[2016-05-01] MEDS: LEVALBUTEROL 0.63 MG/3 ML DEYVIAL IH SCH ×4 (03:02→23:58)
[2016-05-01] MEDS: TIOTROPIUM INHALER 18 MCG/DOSE 5 DOSE/MDI IH SCH (09:08)
[2016-05-01] MEDS: FLUTICASONE HFA 110 MCG MDI IH SCH ×2 (09:10→19:06)
[2016-05-01] MEDS: ATENOLOL 25 MG TAB PO SCH (10:00)
[2016-05-01] MEDS: Estrogens, Conjugated [Premarin] 0.45 MG PO SCH (10:37)
[2016-05-01] MEDS: AZITHROMYCIN 250 MG TAB PO SCH (10:37)
[2016-05-01] MEDS: methylPREDNISolone 4 MG TAB PO SCH ×2 (10:37→22:02)
[2016-05-01] MEDS: morphINE 10 MG/0.5 ML UDSYR PO PRN ×8 (11:47→20:56)
--- NOTE | 2016-05-01 13:50 | HOSPPROG ---
Hospitalist Progress Note Assessment/Plan: # Acute COPD exacerbation- evidenced by poor expiratory air movement diffusely throughout, history of severe underlying COPD patient's respiratory status seemed to advance overnight- patient remaining somnolent oxygen saturation 98% on 2.5 L - CXR(personally reviewed and interpreted) hyperexpansion with no infiltrates -cont Xopenex and Atrovent -continue home dosage of methylprednisolone -continue home dosage of azithromycin - initiating roxanol and ativan for sx control # Acute lethargy- suspect secondary to acute on chronic hypercapnic respiratory failure given her - rising serum bicarbonate -initiating comfort care measures # Chronic hypoxic respiratory failure. Secondary to above, continue supplemental oxygen # Chronic diastolic congestive heart failure- her elevated BNP at 2600 ( baseline is around 500) may be secondary to worsening pulmonary disease -continue beta-vijay -continue to monitor daily weights and strict I&Os # Permanent atrial fibrillation-Mild RVR in the setting of above - continue atenolol - continue to monitor on telemetry - patient not currently on systemic anticoagulation given her limited life expectancy as well as significant bruising in the setting of chronic steroids # Hypertension. Chronic, continue to monitor # Severe protein calorie malnutrition- Evidenced by proximal muscle wasting- BMI 17 - dietary consult -dietary supplements #Diet- Regular diet with supplements # Code. Do not resuscitate per family and advanced directive which is present # Prophylaxis. High risk patient, Lovenox 40 # Disposition- >2MN - plan for home hospice discharge if the patient does not this morning I have discussed the case with RN- we are using appropriate assessments for use of Roxanol Subjective: patient resting Objective: Vital Signs Temp Pulse Resp BP Pulse Ox 36.6 C 124 H 30 H 105/50 L 98 04/29/16 23:46 04/30/16 16:30 04/30/16 16:30 04/30/16 09:37 04/30/16 16:30 Laboratory Results 04/29/16 08:03 04/29/16 08:03 04/30/16 05/01/16 05/02/16 05:59 05:59 05:59 Intake Total 400 Output Total 600 Balance -200 PT 12.5 SEC (12.0-15.0) 04/28/16 16:51 INR 0.94 (0.83-1.16) 04/28/16 16:51 - Physical Exam Constitutional: chronically ill appearing Eyes: anicteric sclera Ears, Nose, Mouth, Throat: dry mucous membranes Cardiovascular: regular rate and rhythym Respiratory: respiratory distress Gastrointestinal: normoactive bowel sounds Genitourinary: no bladder fullness Skin: warm Musculoskeletal: No asymmetric calves Neurologic: No AAOx3 Psychiatric: depressed Lymph, Heme, Immunologic: no cervical LAD ICD10 Worksheet Patient Problems: Problems Problem Status Diagnosed Chronic Disease Mgmt/Transitional Care Acute Generalized weakness Acute Palliative care encounter Acute Pulmonary edema Acute Shortness of breath Acute Hypoxia Active Respiratory failure Active hypercapnea Active
[2016-05-01] MEDS: LORazepam 1 MG/0.5 ML UDSYR PO PRN ×3 (15:11→20:56)
[2016-05-01 15:25] VITALS: PULSE 60
[2016-05-02 01:06] VITALS: O2SAT 89
--- NOTE | 2016-05-10 19:05 | GDS ---
[f rep st] DISCHARGE SUMMARY HISTORY OF PRESENT ILLNESS: This is a 75-year-old female with endstage COPD, presenting with complai nts of shortness of breath. For details of patient's initial presentation, please see the history an d physical dated 04/28/2016. DATE OF : 05/01/2016. HOSPITAL COURSE BY ISSUE: Acute COPD exacerbation. Patient had severe dyspnea at presentation, was treated very aggressively with methylprednisolone, antibiotics and oxygen supplementation, as well as Ativan and Roxanol. Patient had progressing dyspnea and hypoxia over the course of her hospital sta y. Palliative Care was consulted and determination to shift care towards comfort was made. Patient e xpired on the inpatient [facility]aney on 05/01/2016 with her family present. Patient was comfortable and appr opriately treated for both dyspnea and discomfort. /[id number]/MODL
== END 2016-05-02 06:05 | disposition expired | DRG 190 ==
LOC: F2W 20:15
PROVIDERS: ADMIT Internal Medicine; ATTEND Internal Medicine
DX: J44.1 Chronic obstructive pulmonary disease with (acute) exacerbation (principal); J96.22 Acute and chronic respiratory failure with hypercapnia; I50.32 Chronic diastolic (congestive) heart failure; I11.0 Hypertensive heart disease with heart failure; E43 Unspecified severe protein-calorie malnutrition; I48.2 Chronic atrial fibrillation; I27.2 Other secondary pulmonary hypertension; F41.9 Anxiety disorder, unspecified; Z66 Do not resuscitate
CPT/HCPCS: 96374